=== PATIENT | female | born 1990 ===

== ENCOUNTER 2018-06-24 08:59 | Emergency (ER) | payer OTHER ==
[2018-06-24 09:18] VITALS: BP 137/68
--- NOTE | 2018-06-24 10:18 | UC ---
Throat Pain/Nasal Ramses HPI - HPI Summary HPI Summary: sinus pain and pressure x 10 days + nasal congestion , pnd, cough , sore throat no fever, no chills not better with otc meds - History of Current Complaint Chief Complaint: UCGeneralIllness Stated Complaint: SINUS CONCERN,STOMACH ACHE Time Seen by Provider: 06/24/18 09:19 Hx Obtained From: Patient Hx Last Menstrual Period: 05/2018 ?: No Onset/Duration: Gradual Onset, Lasting Days - 10, Still Present Severity: Moderate Pain Intensity: 3 Pain Scale Used: 0-10 Numeric Cough: Nonproductive Associated Signs & Symptoms: Positive: Sinus Discomfort, Nasal Discharge. Negative: Fever, Vomiting, Rash - Allergies/Home Medications Allergies/Adverse Reactions: Allergies Allergy/AdvReac Type Severity Reaction Status Date / Time No Known Allergies Allergy Verified 06/24/18 09:09 Home Medications: Home Medications L.acidoph,Paracasei, B.lactis [Probiotic] 1 each PO DAILY 06/24/18 [History Confirmed 06/24/18] PMH/Surg Hx/FS Hx/Imm Hx Previously Healthy: Yes - Surgical History Surgical History: Yes Surgery Procedure, Year, and Place: - Family History Known Family History: Negative: Diabetes - Social History Alcohol Use: None Substance Use Type: Other Substance Use Comment - Amount & Last Used: CBD vape Smoking Status (MU): Never Smoked Tobacco Type: Smokeless Tobacco Amount Used/How Often: 1 can/2 days Review of Systems All Other Systems Reviewed And Are Negative: Yes Constitutional: Positive: Negative Skin: Positive: Negative Eyes: Positive: Negative ENT: Positive: Nasal Discharge, Sinus Congestion, Sinus Pain/Tenderness Respiratory: Positive: Cough Cardiovascular: Positive: Negative Gastrointestinal: Positive: Negative Is Patient Immunocompromised?: No Physical Exam Triage Information Reviewed: Yes Appearance: Well-Appearing, No Pain Distress, Well-Nourished Vital Signs: Initial Vital Signs Temp 98.9 F 06/24/18 09:10 Pulse 92 06/24/18 09:10 Resp 16 06/24/18 09:10 BP 137/68 06/24/18 09:10 Pulse Ox 100 06/24/18 09:10 Vital Signs Reviewed: Yes Eye Exam: Normal Eyes: Positive: Conjunctiva Clear ENT: Positive: Normal ENT inspection, Hearing grossly normal, Nasal congestion, Nasal drainage, TMs normal, Sinus tenderness. Negative: Pharyngeal erythema, TM bulging, TM dull, TM red, Tonsillar swelling, Tonsillar exudate Neck: Positive: Supple, Nontender, No Lymphadenopathy Respiratory: Positive: Chest non-tender, Lungs clear, Normal breath sounds Skin Exam: Normal Throat Pain/Nasal Course/Dx - Differential Dx/Diagnosis Provider Diagnosis: Sinusitis Discharge - Sign-Out/Discharge Documenting (check all that apply): Patient Departure All imaging exams completed and their final reports reviewed: No Studies - Discharge Plan Condition: Stable Disposition: HOME Prescriptions: Amoxicillin/Clavulanate TAB* [Augmentin TAB 875*] 875 mg PO BID #20 tab Patient Education Materials: Sinusitis (ED) Referrals: Gracia Avelar MD [Primary Care Provider] - If Needed - Billing Disposition and Condition Condition: STABLE Disposition: Home
== END 2018-06-24 09:37 | disposition home or self-care (01) ==
LOC: UCCORT 08:59
DX: J32.9 Chronic sinusitis, unspecified (principal)
CPT/HCPCS: 99212; G0463